=== PATIENT | male | born 1990 | race Caucasian/White ===

== ENCOUNTER 2018-01-28 19:28 | Inpatient (IN) | payer MEDICAID, OTHER ==
[2018-01-28] MEDS: KETOROLAC 30 MG INJ IV (21:35)
[2018-01-28] MEDS: METOCLOPRAMIDE 10 MG INJ IV (21:35)
[2018-01-28] MEDS: DIPHENHYDRAMINE 50 MG INJ IV (21:35)
[2018-01-28] MEDS: SOD CHLORIDE 0.9% 1,000 ML IV (21:36)
[2018-01-28 21:55] LABS: ADD MAN DIFF? NO
[2018-01-28 22:01] LABS: WHITE BLOOD COUNT 23.6 10^3/ul (4.8-10.8)
[2018-01-28 22:01] LABS: ABNORMAL IP MESSAGE 1; BASOPHILS % 0.1 % (0.0-2.0); HEMATOCRIT 51.5 % (42.0-52.0); HEMOGLOBIN 16.9 g/dl (14.0-18.0); LYMPHOCYTES # 0.8 10^3/ul (0.8-2.9); LYMPHOCYTES % 3.3 % (15.0-51.0); MEAN CORPUSCULAR HGB CONC 32.8 g/dl (32.0-37.0); MEAN CORPUSCULAR VOLUME 85.4 fl (82.0-101.0); MONOCYTE # 1.1 10^3/ul (0.3-0.9); MONOCYTES % 4.8 % (0.0-11.0); NEUTROPHIL # 21.5 10^3/ul (1.6-7.5); NEUTROPHILS % 91.3 % (39.0-77.0); PLATELET COUNT 377 10^3/UL (140-415); POSITIVE DIFF @See below; RED BLOOD COUNT 6.03 10^6/ul (4.70-6.10); RED CELL DISTRIBUTION WIDTH 12.7 % (11.5-14.5)
[2018-01-28 22:18] LABS: ALANINE AMINOTRANSFERASE 256 IU/L (13-69); ALBUMIN 5.7 g/dl (3.3-4.9); ALBUMIN/GLOBULIN RATIO 1.83; ALKALINE PHOSPHATASE 59 IU/L (42-121); ANION GAP 27 (8-16); ASPARTATE AMINO TRANSFERASE 663 IU/L (15-46); BILIRUBIN,INDIRECT 1.4 mg/dl (0-1.1); BILIRUBIN,TOTAL 1.4 mg/dl (0.2-1.3); BLOOD UREA NITROGEN 9 mg/dl (7-20); CARBON DIOXIDE 23 mmol/L (21-31); CHLORIDE 107 mmol/L (97-110); GLUCOSE 162 mg/dl (70-220); LIPASE 46 U/L (23-300); POTASSIUM 4.2 mmol/L (3.5-5.1); SODIUM 153 mmol/L (135-144); TOTAL PROTEIN 8.8 g/dl (6.1-8.1)
[2018-01-28 23:05] LABS: ADD UMIC YES; UR ASCORBIC ACID NEGATIVE (NEGATIVE); UR BACTERIA FEW /HPF (NONE SEEN); UR BILIRUBIN (Dip) NEGATIVE (NEGATIVE); UR BLOOD (Dip) 3+ mg/dL (NEGATIVE); UR CLARITY CLOUDY (CLEAR); UR COLOR YELLOW (YELLOW); UR GLUCOSE (Dip) 1+ mg/dL (NEGATIVE); UR KETONES (Dip) 2+ mg/dL (NEGATIVE); UR LEUKOCYTE ESTERASE (Dip) NEGATIVE Leu/ul (NEGATIVE); UR MUCUS FEW /HPF (NONE SEEN); UR NITRITE (Dip) NEGATIVE (NEGATIVE); UR RBC > 182 /HPF (0-5); UR SPECIFIC GRAVITY (Dip) 1.021 (1.003-1.030); UR TOTAL PROTEIN (Dip) 2+ mg/dl (NEGATIVE); UR UROBILINOGEN (Dip) NEGATIVE (NEGATIVE); UR WBC 25 /HPF (0-5)
[2018-01-28] MEDS: ONDANSETRON 4 MG INJ IV (23:26)
[2018-01-28] MEDS: HYDROmorphONE 0.5 MG/0.5 ML SYG IV (23:27)
[2018-01-29] MEDS: ONDANSETRON 4 MG INJ IV ×3 (01:56→09:39)
[2018-01-29] MEDS: CEFTRIAXONE 1 GM/50 ML (PMX) 50 ML IVPB (02:02)
[2018-01-29] MEDS ORDERED: ACETAMINOPHEN 325 MG TAB PO ×2 (02:30→04:00)
[2018-01-29] MEDS: SOD CHLORIDE 0.9% 1,000 ML IV (02:30)
[2018-01-29] MEDS ORDERED: hydrALAzine 20 MG INJ IV (04:00)
[2018-01-29] MEDS ORDERED: NITROGLYCERIN (SL) 0.4 MG TAB SL (04:00)
[2018-01-29] MEDS ORDERED: DOCUSATE SODIUM 100 MG CAP PO (04:00)
[2018-01-29] MEDS ORDERED: ONDANSETRON 4 MG INJ IV (04:00)
[2018-01-29] MEDS ORDERED: morphine 2 MG INJ IV (04:00)
[2018-01-29] MEDS ORDERED: MAGNESIUM HYDROXIDE 30ML CUP PO (04:00)
[2018-01-29] MEDS ORDERED: ALBUTEROL/IPRATROPIUM (NEB) 3 ML AMP HHN (04:00)
[2018-01-29] MEDS ORDERED: NACL 0.9% 3 ML SYG IV (04:00)
[2018-01-29] MEDS ORDERED: NA PHOSPHATE/BIPHOS 133 ML ENEMA PR (04:00)
[2018-01-29] MEDS ORDERED: HYDROCODONE/APAP (5/325) TAB PO (04:00)
[2018-01-29] MEDS: LORAZEPAM 2 MG INJ IV (04:03)
[2018-01-29] MEDS: PIPER-TAZO 3.375 GM IV (PMX) 100 ML IVPB ×3 (06:00→18:48)
[2018-01-29 06:14] LABS: HAAIG REFLEX REFLEX FILED
[2018-01-29] MEDS: DEXTROSE 5% 1,000 ML IV ×2 (06:31→14:50)
[2018-01-29 06:54] LABS: FREE T4 (FREE THYROXINE) 1.17 ng/dl (0.79-2.35)
[2018-01-29 07:09] LABS: HEPATITIS B SURFACE ANTIGEN NEGATIVE (NEGATIVE)
[2018-01-29 07:11] LABS: ETHANOL < 10.0 mg/dl
[2018-01-29 07:27] LABS: HEPATITIS B CORE ANTIBODY NEGATIVE (NEGATIVE); HEPATITIS C VIRAL ANTIBODY NEGATIVE (NEGATIVE)
[2018-01-29 08:54] LABS: BARBITURATES Negative (NEGATIVE); CANNABINOIDS Positive (NEGATIVE); COCAINE Negative (NEGATIVE)
[2018-01-29 09:00] LABS: CREATINE KINASE 15774 IU/L (23-200)
[2018-01-29 09:32] LABS: AMPHETAMINE/METHAMPHETAMINE Negative (NEGATIVE); BENZODIAZEPINES Negative (NEGATIVE)
[2018-01-29] MEDS: HEPARIN 5,000 UNIT/0.5 ML VIAL SC ×2 (09:40→21:26)
[2018-01-29 09:47] LABS: OPIATES Negative (NEGATIVE)
[2018-01-30] MEDS: PIPER-TAZO 3.375 GM IV (PMX) 100 ML IVPB ×3 (01:47→11:50)
[2018-01-30] MEDS: DEXTROSE 5% 1,000 ML IV ×3 (01:48→11:45)
[2018-01-30 05:07] LABS: ADD MAN DIFF? NO
[2018-01-30 05:13] LABS: BASOPHILS % 0.2 % (0.0-2.0); EOSINOPHILS # 0.1 10^3/ul (0.0-0.5); EOSINOPHILS % 0.8 % (0.0-7.0); HEMATOCRIT 44.9 % (42.0-52.0); HEMOGLOBIN 14.7 g/dl (14.0-18.0); LYMPHOCYTES # 3.1 10^3/ul (0.8-2.9); LYMPHOCYTES % 33.3 % (15.0-51.0); MEAN CORPUSCULAR HEMOGLOBIN 28.2 pg (29.0-33.0); MEAN CORPUSCULAR HGB CONC 32.7 g/dl (32.0-37.0); MEAN PLATELET VOLUME 10.8 fl (7.4-10.4); MONOCYTE # 0.6 10^3/ul (0.3-0.9); MONOCYTES % 6.7 % (0.0-11.0); NEUTROPHIL # 5.5 10^3/ul (1.6-7.5); NEUTROPHILS % 58.7 % (39.0-77.0); PLATELET COUNT 249 10^3/UL (140-415); RED BLOOD COUNT 5.22 10^6/ul (4.70-6.10); RED CELL DISTRIBUTION WIDTH 12.9 % (11.5-14.5)
[2018-01-30 05:13] LABS: WHITE BLOOD COUNT 9.3 10^3/ul (4.8-10.8)
[2018-01-30 05:32] LABS: ANION GAP 18 (8-16); BLOOD UREA NITROGEN 14 mg/dl (7-20); CALCIUM 9.8 mg/dl (8.4-10.2); CARBON DIOXIDE 28 mmol/L (21-31); CHLORIDE 105 mmol/L (97-110); CREATININE 1.22 mg/dl (0.61-1.24); GLUCOSE 105 mg/dl (70-220); MAGNESIUM 1.9 mg/dl (1.7-2.5); PHOSPHORUS 4.2 mg/dl (2.5-4.9); POTASSIUM 3.7 mmol/L (3.5-5.1); SODIUM 147 mmol/L (135-144)
[2018-01-30 05:35] LABS: HEMOGLOBIN A1C 5.1 % (0-5.9)
[2018-01-30 05:36] LABS: CHOL/HDL RATIO 3.9 RATIO; HDL CHOLESTEROL 33 mg/dl (30-63); LDL CHOLESTEROL,CALCULATED 71 mg/dl; TRIGLYCERIDES 129 mg/dl (0-149)
[2018-01-30 05:36] LABS: CHOLESTEROL 130 mg/dl (100-200)
[2018-01-30 06:02] LABS: THYROID STIMULATING HORMONE 0.913 MIU/L (0.465-4.680)
[2018-01-30] MEDS: HEPARIN 5,000 UNIT/0.5 ML VIAL SC (08:53)
[2018-01-30 13:34] LABS: ALANINE AMINOTRANSFERASE 174 IU/L (13-69); ALBUMIN 4.1 g/dl (3.3-4.9); ALKALINE PHOSPHATASE 40 IU/L (42-121); ASPARTATE AMINO TRANSFERASE 338 IU/L (15-46); BILIRUBIN,INDIRECT 1.4 mg/dl (0-1.1); BILIRUBIN,TOTAL 1.4 mg/dl (0.2-1.3); TOTAL PROTEIN 6.7 g/dl (6.1-8.1)
[2018-01-30 13:56] LABS: CREATINE KINASE 9410 IU/L (23-200)
[2018-01-30 14:52] LABS: TROPONIN-I < 0.012 ng/ml (0.00-0.12)
[2018-01-30] MEDS: LEVOFLOXACIN 250 MG TAB PO (16:20)
== END 2018-01-30 17:12 | disposition home or self-care (01) | DRG 392 ==
LOC: MS1 01-29 02:23 → FTE 19:28
DX: K29.00 Acute gastritis without bleeding (principal); M62.82 Rhabdomyolysis; N39.0 Urinary tract infection, site not specified; T62.91XA Toxic effect of unspecified noxious substance eaten as food, accidental (unintentional), initial encounter; Y92.009 Unspecified place in unspecified non-institutional (private) residence as the place of occurrence of the external cause; F12.10 Cannabis abuse, uncomplicated; R06.03 Acute respiratory distress; I10 Essential (primary) hypertension
CPT/HCPCS: 70450; 71045; 74176; 76705; 80048; 80053; 80061; 80076; 80306; 80307; 81001; 82550; 82553; 83036; 83690; 83735; 84100; 84439; 84443; 84484; 85025; 86704; 86709; 86803; 87086; 87340; 93005; 93306

== ENCOUNTER 2018-04-09 11:46 | Emergency (ER) | payer MEDICAID ==
[2018-04-09] MEDS: ONDANSETRON 4 MG INJ IV (12:20)
[2018-04-09] MEDS: HYDROmorphONE 1 MG/ML SYG IV (12:20)
[2018-04-09 12:21] LABS: ADD MAN DIFF? NO
[2018-04-09 12:29] LABS: WHITE BLOOD COUNT 7.2 10^3/ul (4.8-10.8)
[2018-04-09 12:29] LABS: BASOPHILS % 0.4 % (0.0-2.0); EOSINOPHILS # 0.1 10^3/ul (0.0-0.5); EOSINOPHILS % 1.5 % (0.0-7.0); HEMATOCRIT 49.1 % (42.0-52.0); HEMOGLOBIN 16.4 g/dl (14.0-18.0); LYMPHOCYTES % 28.4 % (15.0-51.0); MEAN CORPUSCULAR HEMOGLOBIN 28.1 pg (29.0-33.0); MEAN CORPUSCULAR HGB CONC 33.4 g/dl (32.0-37.0); MEAN CORPUSCULAR VOLUME 84.2 fl (82.0-101.0); MEAN PLATELET VOLUME 10.9 fl (7.4-10.4); MONOCYTE # 0.6 10^3/ul (0.3-0.9); MONOCYTES % 8.9 % (0.0-11.0); NEUTROPHIL # 4.3 10^3/ul (1.6-7.5); NEUTROPHILS % 60.5 % (39.0-77.0); PLATELET COUNT 339 10^3/UL (140-415); RED BLOOD COUNT 5.83 10^6/ul (4.70-6.10); RED CELL DISTRIBUTION WIDTH 12.7 % (11.5-14.5)
[2018-04-09] MEDS: LACTATED RINGER'S 1,000 ML IV (12:35)
[2018-04-09] MEDS: morphine 2 MG INJ IV (12:38)
[2018-04-09] MEDS: KETOROLAC 30 MG INJ IV (12:38)
[2018-04-09 12:45] LABS: ALANINE AMINOTRANSFERASE 46 IU/L (13-69); ALBUMIN 5.2 g/dl (3.3-4.9); ALBUMIN/GLOBULIN RATIO 1.73; ALKALINE PHOSPHATASE 61 IU/L (42-121); ANION GAP 19 (8-16); ASPARTATE AMINO TRANSFERASE 32 IU/L (15-46); BILIRUBIN,INDIRECT 1.5 mg/dl (0-1.1); BILIRUBIN,TOTAL 1.5 mg/dl (0.2-1.3); BLOOD UREA NITROGEN 11 mg/dl (7-20); CALCIUM 10.6 mg/dl (8.4-10.2); CARBON DIOXIDE 20 mmol/L (21-31); CHLORIDE 111 mmol/L (97-110); CREATININE 0.97 mg/dl (0.61-1.24); GLUCOSE 133 mg/dl (70-220); LIPASE 66 U/L (23-300); POTASSIUM 3.9 mmol/L (3.5-5.1); SODIUM 146 mmol/L (135-144); TOTAL PROTEIN 8.2 g/dl (6.1-8.1)
[2018-04-09] MEDS: IOHEXOL 300MG/ML 150 ML BTL (13:00)
[2018-04-09] MEDS: SOD CHLORIDE 0.9% 100 ML (13:00)
[2018-04-09 13:15] LABS: LACTIC ACID 3.5 mmol/L (0.5-2.0)
[2018-04-09 13:26] LABS: TROPONIN-I < 0.012 ng/ml (0.000-0.120)
[2018-04-09] MEDS: SOD CHLORIDE 0.9% 1,000 ML IV (14:18)
[2018-04-09 15:42] LABS: ADD UMIC YES; UR ASCORBIC ACID NEGATIVE (NEGATIVE); UR BACTERIA FEW /HPF (NONE SEEN); UR BILIRUBIN (Dip) NEGATIVE (NEGATIVE); UR BLOOD (Dip) 3+ mg/dL (NEGATIVE); UR CLARITY CLEAR (CLEAR); UR COLOR YELLOW (YELLOW); UR GLUCOSE (Dip) NEGATIVE (NEGATIVE); UR KETONES (Dip) TRACE mg/dL (NEGATIVE); UR LEUKOCYTE ESTERASE (Dip) NEGATIVE Leu/ul (NEGATIVE); UR MUCUS FEW /HPF (NONE SEEN); UR NITRITE (Dip) NEGATIVE (NEGATIVE); UR RBC > 182 /HPF (0-5); UR SPECIFIC GRAVITY (Dip) 1.053 (1.003-1.030); UR TOTAL PROTEIN (Dip) NEGATIVE (NEGATIVE); UR UROBILINOGEN (Dip) NEGATIVE (NEGATIVE); UR WBC 5 /HPF (0-5)
== END 2018-04-09 17:48 | disposition home or self-care (01) ==
LOC: FTE 11:46
DX: N20.0 Calculus of kidney (principal)
CPT/HCPCS: 36415; 74177; 76870; 80053; 81001; 83605; 83690; 84484; 85025; 96374; 96375; 99285-25

== ENCOUNTER 2018-08-17 02:24 | Emergency (ER) | payer MEDICAID, OTHER ==
[2018-08-17] MEDS: SOD CHLORIDE 0.9% 1,000 ML IV (03:04)
[2018-08-17] MEDS: ONDANSETRON 4 MG INJ IV (03:04)
[2018-08-17] MEDS: KETOROLAC 15 MG INJ IV (03:04)
[2018-08-17 03:05] LABS: ADD MAN DIFF? NO
[2018-08-17 03:06] LABS: WHITE BLOOD COUNT 12.4 10^3/ul (4.8-10.8)
[2018-08-17 03:06] LABS: BASOPHILS % 0.2 % (0.0-2.0); EOSINOPHILS % 0.1 % (0.0-7.0); HEMATOCRIT 48.7 % (42.0-52.0); HEMOGLOBIN 16.6 g/dl (14.0-18.0); LYMPHOCYTES # 2.6 10^3/ul (0.8-2.9); LYMPHOCYTES % 21.2 % (15.0-51.0); MEAN CORPUSCULAR HGB CONC 34.1 g/dl (32.0-37.0); MEAN CORPUSCULAR VOLUME 82.1 fl (82.0-101.0); MEAN PLATELET VOLUME 11.1 fl (7.4-10.4); MONOCYTES % 7.9 % (0.0-11.0); NEUTROPHIL # 8.7 10^3/ul (1.6-7.5); NEUTROPHILS % 70.4 % (39.0-77.0); PLATELET COUNT 356 10^3/UL (140-415); RED BLOOD COUNT 5.93 10^6/ul (4.70-6.10); RED CELL DISTRIBUTION WIDTH 12.2 % (11.5-14.5)
[2018-08-17 03:23] LABS: ALANINE AMINOTRANSFERASE 42 IU/L (13-69); ALBUMIN 5.4 g/dl (3.3-4.9); ALBUMIN/GLOBULIN RATIO 1.58; ALKALINE PHOSPHATASE 57 IU/L (42-121); ANION GAP 17 (5-13); ASPARTATE AMINO TRANSFERASE 42 IU/L (15-46); BILIRUBIN,INDIRECT 2.7 mg/dl (0-1.1); BILIRUBIN,TOTAL 2.7 mg/dl (0.2-1.3); BLOOD UREA NITROGEN 21 mg/dl (7-20); CALCIUM 10.7 mg/dl (8.4-10.2); CARBON DIOXIDE 21 mmol/L (21-31); CHLORIDE 104 mmol/L (97-110); CREATININE 1.14 mg/dl (0.61-1.24); Estimated GFR > 60 mL/min (>60); GLUCOSE 141 mg/dl (70-220); LIPASE 36 U/L (23-300); POTASSIUM 3.8 mmol/L (3.5-5.1); SODIUM 142 mmol/L (135-144); TOTAL PROTEIN 8.8 g/dl (6.1-8.1)
[2018-08-17 03:24] LABS: ETHANOL < 10.0 mg/dl
[2018-08-17 04:39] LABS: ADD UMIC YES; UR ASCORBIC ACID NEGATIVE (NEGATIVE); UR BACTERIA FEW /HPF (NONE SEEN); UR BILIRUBIN (Dip) NEGATIVE (NEGATIVE); UR BLOOD (Dip) 1+ mg/dL (NEGATIVE); UR CLARITY CLEAR (CLEAR); UR COLOR AMBER (YELLOW); UR GLUCOSE (Dip) NEGATIVE (NEGATIVE); UR KETONES (Dip) 2+ mg/dL (NEGATIVE); UR LEUKOCYTE ESTERASE (Dip) NEGATIVE Leu/ul (NEGATIVE); UR MUCUS MODERATE /HPF (NONE SEEN); UR NITRITE (Dip) NEGATIVE (NEGATIVE); UR RBC 1 /HPF (0-5); UR SPECIFIC GRAVITY (Dip) 1.033 (1.003-1.030); UR TOTAL PROTEIN (Dip) 1+ mg/dl (NEGATIVE); UR UROBILINOGEN (Dip) 1+ mg/dL (NEGATIVE); UR WBC 2 /HPF (0-5)
[2018-08-17 04:48] LABS: AMPHETAMINE/METHAMPHETAMINE Negative (NEGATIVE); BARBITURATES Negative (NEGATIVE); BENZODIAZEPINES Negative (NEGATIVE); CANNABINOIDS Positive (NEGATIVE); COCAINE Negative (NEGATIVE); OPIATES Negative (NEGATIVE)
[2018-08-17] MEDS: METOCLOPRAMIDE 10 MG INJ IV (04:56)
[2018-08-17] MEDS: DIPHENHYDRAMINE 50 MG INJ IV (04:57)
[2018-08-17] MEDS: LORAZEPAM 2 MG INJ IV (05:45)
[2018-08-17] MEDS: HYDROmorphONE 0.5 MG/0.5 ML SYG IV (06:07)
== END 2018-08-17 06:55 | disposition home or self-care (01) ==
LOC: E/R 02:24
DX: G43.A0 Cyclical vomiting, in migraine, not intractable (principal); R40.2142 Coma scale, eyes open, spontaneous, at arrival to emergency department; R40.2362 Coma scale, best motor response, obeys commands, at arrival to emergency department; R40.2252 Coma scale, best verbal response, oriented, at arrival to emergency department; N20.0 Calculus of kidney; F12.10 Cannabis abuse, uncomplicated; E87.2 Acidosis; E86.0 Dehydration; E80.6 Other disorders of bilirubin metabolism; D72.829 Elevated white blood cell count, unspecified
CPT/HCPCS: 36415; 76775; 80053; 80307; 81001; 83690; 85025; 96374; 96375; 99285-25

== ENCOUNTER 2018-08-17 22:39 | Emergency (ER) | payer MEDICAID ==
[2018-08-18] MEDS: KETOROLAC 30 MG INJ IV (01:54)
[2018-08-18] MEDS: LORAZEPAM 2 MG INJ IV (01:54)
[2018-08-18] MEDS: SOD CHLORIDE 0.9% 1,000 ML IV (01:54)
[2018-08-18] MEDS: METOCLOPRAMIDE 10 MG INJ IV (01:54)
== END 2018-08-18 02:52 | disposition home or self-care (01) ==
LOC: E/R 22:39
DX: F41.9 Anxiety disorder, unspecified (principal); F12.10 Cannabis abuse, uncomplicated
CPT/HCPCS: 96374; 96375; 99284-25